=== PATIENT | male | born 1955 | race Caucasian/White ===

== ENCOUNTER 2023-04-12 20:51 | Emergency (ER) | payer MEDICARE ==
[2023-04-12] MEDS ORDERED: dilTIAZem 25 MG/5 ML VIAL ONE ×2 (21:05→21:27)
[2023-04-12 21:19] LABS: #Basophils 0.1 10x3/uL (0.0-0.2); #Eosinphils 0.3 10x3/uL (0.0-0.5); #Monocytes 0.9 10x3/uL (0.0-1.1); #Neutrophils 7.4 10x3/uL (1.5-8.4); %Basophils 0.7 % (0.0-2.0); %Eosinophils 2.5 % (0.0-6.0); %Lymphocytes 22.3 % (18.0-47.0); %Monocytes 8.2 % (0.0-10.0); %Neutrophils 65.8 % (40.0-75.0); Hemoglobin 16.3 g/dL (13.5-17.5); Mean Corpuscular Hemoglobin 32.3 pg (27.0-33.0); Mean Corpuscular Volume 95.2 fl (81.2-95.1); Mean Platelet Volume 9.9 fl (7.4-10.4); Platelet Count 375 10x3/uL (150-450); RBC Distribution Width 13.3 % (11.5-14.5); Red Blood Cell (RBC) Count 5.04 10x6/uL (4.32-5.72); White Blood Cell (WBC) Count 11.3 10x3/uL (3.5-10.5)
[2023-04-12] MEDS ORDERED: dilTIAZem 125 MG/25 ML SDV ONE (21:26)
[2023-04-12 21:32] LABS: ALT (SGPT) 24 U/L (8-55); AST (SGOT) 21 U/L (5-34); Albumin 4.5 g/dL (3.4-4.8); Alkaline Phosphatase 86 U/L (40-110); Anion Gap 18 mmol/L (10-20); BUN (Urea Nitrogen) 26 mg/dL (8.4-25.7); Bilirubin, Total 0.5 mg/dL (0.2-1.2); Calc. Creatinine Clearance 0 mL/min (70-130); Calcium 9.8 mg/dL (7.8-10.44); Carbon Dioxide 21 mmol/L (23-31); Chloride 107 mmol/L (98-107); Estimated GFR 74; Globulin 3.4 g/dL (2.4-3.5); Glucose 158 mg/dL (80-115); Potassium 3.9 mmol/L (3.5-5.1); Protein, Total 7.9 g/dL (5.8-8.1); Sodium 142 mmol/L (136-145)
[2023-04-12 21:35] LABS: Troponin I Less than 0.010 ng/mL (< 0.028)
[2023-04-12 21:37] LABS: Acetaminophen Less than 10 mcg/mL (10.0-30.0); Alcohol 15.4 mg/dL (Less than 10); Magnesium 2.2 mg/dL (1.6-2.6); Salicylate Less than 8.0 mg/dL (15.0-30.0)
[2023-04-12 22:56] LABS: SARS-CoV-2 NAA Rapid Test Not Detected (NotDetected)
[2023-04-13 02:22] LABS: Troponin I 0.023 ng/mL (< 0.028)
== END 2023-04-13 02:45 | disposition home or self-care (01) ==
LOC: CSHERS 20:51
DX: I48.20 Chronic atrial fibrillation, unspecified (principal)
CPT/HCPCS: 0240U; 71045; 80053; 80307; 83735; 83880; 84484; 85025; 93005; 93010; 96374

== ENCOUNTER 2023-04-27 08:13 | Outpatient (CLI) | payer MEDICARE ==
[2023-04-27] MEDS ORDERED: Iopamidol 370 76% 100 ML VIAL ONE (12:17)
== END 2023-04-27 08:14 | disposition home or self-care (01) ==
LOC: CSHCT 08:13
PROVIDERS: ATTEND Internal Medicine Cardiovascular Disease
DX: I48.91 Unspecified atrial fibrillation (principal); K76.9 Liver disease, unspecified
CPT/HCPCS: 71275; 82565; Q9967

== ENCOUNTER 2023-05-25 10:43 | Outpatient (CLI) | payer MEDICARE | END 2023-05-25 10:44 | disposition home or self-care (01) | LOC: CSHULT 10:43 | PROVIDERS: ATTEND Internal Medicine Cardiovascular Disease | DX: K76.89 Other specified diseases of liver (principal) | CPT/HCPCS: 76700 ==